=== PATIENT | female | born 2005 | race Two or more races ===

== ENCOUNTER 2025-07-06 00:16 | Emergency (ER) | payer MEDICAID, SELFPAY ==
[2025-07-06 00:18] VITALS: BP 132/94; PULSE 120; RESP 18; TEMP 36.9; O2SAT 99
[2025-07-06 00:36] VITALS: PULSE 113; BMI 26.6
--- NOTE | 2025-07-06 02:09 | EDNOTE_ITS ---
ED Medical Clearance RME/HPI General Chief complaint: Medical Clearance Stated complaint: MEDICAL CLEARANCE Time Seen by Provider: 07/06/25 00:44 Arrival date/time: 07/06/25 00:16 19F with no significant PMH presents to ED with PD for [facility] clearance because patient is . Patient denies any pain and vaginal bleeding. Limitations: no limitations Related Information Home Medications ?Medication ?Instructions ?Recorded ?Confirmed prenat.vits,shayy,xxj-[id number] 1 tab PO QDAY 01/13/21 01/13/21 Allergies Allergy/AdvReac Type Severity Reaction Status Date / Time No Known Allergies Allergy Verified 07/06/25 00:41 Review of Systems Review of Systems Systems Reviewed: All systems reviewed, normal except as documented Past Medical History Past Medical History NEUROLOGIC: Positive Neurological Disorders and Migraine; Negative Seizures CARDIAC: Positive Hypertension; Negative Cardiac Disorders or Congestive Heart Failure RESPIRATORY: Negative Chronic Obstructive Pulmonary Disease (COPD) or Asthma GASTROINTESTINAL: Negative Gastrointestinal Disorders, Hepatitis or Colorectal Cancer GENITOURINARY: Negative Genitourinary Disorders, Renal Disease or Prostate Cancer REPRODUCTIVE: Negative Breast Cancer, Pelvic Inflammatory Disease or Testicular Cancer MUSCULOSKELETAL: Negative Musculoskeletal Disorders or Bone Cancer ENDOCRINE: Negative Endocrine Disorders, Diabetes Mellitus Type 1 or Diabetes Mellitus Type 2 HEMATOLOGIC: Negative Blood Disorders or Sickle Cell Disease OTHER HISTORY: Negative Hospitalization, Autoimmune Disease, Down Syndrome, Developmental Delay, Shingles, Falls, Blood Transfusions, Blood Transfusion Reaction, Anesthesia Reactions, MRSA, VRSA, Vancomycin-Resistant Enterococci, Human Immunodeficiency Virus (HIV), Chicken Pox, Measles, Mumps, Rubella ([place] Measles), Pertussis, Clostridium Difficile, Cancer, Breast Cancer, Cervical Cancer, Colorectal Cancer, Lung Cancer, Ovarian Cancer, Prostate Cancer or Testicular Cancer Family History FAMILY HISTORY: Positive Family Cancer (lung cancer, grandfather); Negative Family Psychiatric Problems, Family Respiratory Disorders, Family Cardiac Disorders, Family Gastrointestinal Problems, Family Surgery or Family Anesthesia Reaction Surgical History SURGICAL: Negative Section Social History SMOKING STATUS: Never smoker SUBSTANCE USE: marijuana ED Exam General Limitations: Present no limitations General appearance: Present alert and in no apparent distress Head Head exam: Present atraumatic Neck Neck exam: Present normal inspection, full ROM and trachea midline Chest Chest inspection: Present normal inspection and symmetric chest wall rise Neurological Exam Neurological exam: Present alert and oriented X3 Psychiatric Psychiatric exam: Present normal affect and normal mood Skin Skin exam: Present warm, dry, intact and normal color Course Quality Measures none Vital Signs Vital signs: Vital Signs Temperature 98.4 F 07/06/25 00:18 Pulse Rate 120 H 07/06/25 00:18 Respiratory Rate 18 07/06/25 00:18 Blood Pressure 132/94 H 07/06/25 00:18 Pulse Oximetry (%) 99 07/06/25 00:18 Oxygen Delivery Method Room Air 07/06/25 00:18 O2 at 99% on RA and WNLs Medical Clearance MDM Narrative MDM Narrative:: 19F with no significant PMH presents to ED with PD for [facility] clearance because patient is . Patient denies any pain and vaginal bleeding. Physical exam reveals well-appearing female. Patient is afebrile, calm, and alert. Medically cleared. Patient data External records reviewed:: [facility] previous records Clinical information provided by:: patient Social determinants that could affect healthcare access:: none Patient has the following chronic illnesses:: none How is presenting disease/condition affected by chronic disease/condition?: no chronic disease Evaluation data The following diagnostics were reviewed and interpreted by me:: other (specify) (none) Lab and/or radiology exams considered but not ordered:: not ordered Interpretation Summary: n/a Medications / Prescriptions Medications or Prescriptions considered but not ordered:: not ordered Medication administrations:: n/a Consultations Consultation(s) initiated? (list below): No Diagnosis Medical Clearance Differential Diagnosis: other (, medical clearance, psych) Most likely diagnosis given after review of the tests above:: Admission Indicated Admission indicated?: not indicated Admission Request Was there a request for admission?: No Disposition Plan Disposition Plan: Discharge Discharge Attestation Discharge Attestation: The patient and all family members were given an opportunity to ask questions and understood the discharge instructions. Discharge instructions specifically effects, indications for sooner follow up or return to the emergency department, and the expected course of current diagnosis. Patient condition: Stable Discharge Plan Plan Patient Disposition: HOME (Self Care) Discharge Disposition comment: Stable Prescriptions/Referrals Prescriptions/Med Rec: No Action Vitamin Tablet 1 tab PO QDAY Problem List Clinical Impression: Medical clearance for incarceration Patient/Caregiver Discharge Instructions Print Language: Japanese Stand Alone Forms: Patient Portal Info Letter GIANA/SHANTE Supervising Physician GIANA/SHANTE Supervising Physician: Dr. Pulliam
== END 2025-07-06 00:51 | disposition home or self-care (01) ==
LOC: SERX 01:44
PROVIDERS: Emergency Provider Emergency Medicine
DX: Z02.89 Encounter for other administrative examinations (principal); Z34.90 Encounter for supervision of normal pregnancy, unspecified, unspecified trimester; Z3A.00 Weeks of gestation of pregnancy not specified
CPT/HCPCS: 99281

== ENCOUNTER 2025-10-13 14:12 | Observation (INO) | payer MEDICAID, SELFPAY ==
[2025-10-13 14:15] VITALS: BP 127/67; PULSE 103; RESP 18; RESP 98; TEMP 36.7; BMI 43.4
[2025-10-13 14:23] VITALS: BP 127/67; PULSE 103
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
[2025-10-13 17:13] LABS: Basophils # (Auto) 0.1 Thou/mm3 (0.0-0.2); Basophils % (Auto) 0 % (0-2.5); Eosinophils # (Auto) 0.1 Thou/mm3 (0.0-0.5); Eosinophils % (Auto) 1 % (0-10); Hematocrit 36.2 % (36.0-46.0); Hemoglobin 12.5 g/dL (12.0-16.0); Immature Granulocytes Auto 0.05 Thou/mm3 (0.00-0.00); Lymphocytes # (Auto) 2.0 Thou/mm3 (1.0-4.8); Lymphocytes % (Auto) 15 % (10-50); Mean Corpuscular HGB Conc 34.5 g/dl (31.0-37.0); Mean Corpuscular Hemoglobin 30.6 pg (25.0-35.0); Mean Corpuscular Volume 89 fL (80-100); Monocytes # (Auto) 0.6 Thou/mm3 (0.0-0.8); Monocytes % (Auto) 4 % (0-12); Neutrophils # (Auto) 11.1 Thou/mm3 (1.8-7.7); Neutrophils % (Auto) 80 % (37-80); Nucleated Red Blood Cell # 0.00 Thou/mm3 (0.00-0.00); Nucleated Red Blood Cell % 0 /100 WBC (0); Platelet Count 233 Thou/mm3 (140-440); RDW Standard Deviation 43.7 fL (36.4-46.3); Red Blood Count 4.09 Miln/mm3 (4.00-5.20); White Blood Count 13.8 Thou/mm3 (4.5-11.0)
[2025-10-13 17:21] LABS: INR 1.0 (0.9-1.3); Partial Thromboplastin Time 28.5 Seconds (22.0-36.0); Prothrombin Time 10.6 Seconds (9.0-12.2)
== END 2025-10-13 17:30 | disposition left against medical advice (07) ==
PROVIDERS: Admitting Provider Obstetrics & Gynecology; Visit Provider Obstetrics & Gynecology
DX: O9A.212 Injury, poisoning and certain other consequences of external causes complicating pregnancy, second trimester (principal); S09.90XA Unspecified injury of head, initial encounter; S49.90XA Unspecified injury of shoulder and upper arm, unspecified arm, initial encounter; Y04.0XXA Assault by unarmed brawl or fight, initial encounter; Z3A.20 20 weeks gestation of pregnancy
CPT/HCPCS: 36415; 59025; 59899; 76815; 85025; 85610; 85730